=== PATIENT | female | born 1945 | race Caucasian/White ===

== ENCOUNTER 2022-06-20 06:13 | Day surgery (SDC) | payer MEDICARE, BC ==
[~2022-06-20] VITALS: Ht 160 cm; Wt 72.6 kg
[2022-06-20] MEDS ORDERED: BUTALB-ACETAMI1 EAC6 PO (06:29)
--- NOTE | 2022-06-20 06:31 | NUR ---
06/20/22 0631 Delilah Crain AT 0630 PLEDGET AT 0631
== END 2022-06-20 08:15 | disposition home or self-care (01) ==
LOC: ORSCSDS 06:13
PROVIDERS: Ophthalmology
PROC: 08RJ3JZ Replacement of Right Lens with Synthetic Substitute, Percutaneous Approach (ICD-10-PCS; principal; 2022-06-20 07:30)
DX: H25.11 Age-related nuclear cataract, right eye (principal)
CPT/HCPCS: J2001; J2250; J3010; J3301; J7040; V2632